=== PATIENT | male | born 1975 | race African-American/Black ===

== ENCOUNTER 2017-04-02 12:09 | Emergency (ER) | payer SELFPAY ==
[~2017-04-02] VITALS: Ht 177.8 cm; Wt 79.5 kg
[~2017-04-02 12:09] MED LIST: ERYTHROMYCIN O3.5 GM BOTH EYES; FLEXERIL10 MG PO; INDOCIN50 MG PO; KEFLEX500 MG PO; MOTRIN600 MG PO; NAPROSYN500 MG PO; NOHOMEMEDS; NORCO 5/3251 TABLET PO; PERCOCET 5/31 TABLET PO; ULTRAM50 MG PO
[2017-04-02] MEDS ORDERED: NAPROSYN500 MG PO (14:07)
[2017-04-02] MEDS ORDERED: LIDODERM 5% P1 PATCH TD (14:07)
[2017-04-02] MEDS ORDERED: FLEXERIL10 MG PO (14:07)
[2017-04-02] MEDS ORDERED: PREDNISONE20 MG PO (14:07)
[2017-04-02 14:20] VITALS: BP 169/105
== END 2017-04-02 14:25 | disposition home or self-care (01) ==
LOC: EME 12:09
DX: M54.41 Lumbago with sciatica, right side (principal)
CPT/HCPCS: 72131; 99281; 99284; J1885; J7512

== ENCOUNTER 2017-06-16 05:32 | Day surgery (SDC) | payer OTHER ==
[~2017-06-16] VITALS: Ht 177.8 cm; Wt 79.4 kg
[~2017-06-16 05:32] MED LIST changes: +HYDROCODON-ACE1 EAC8 PO; +LIDODERM 5% P1 PATCH TD; +PREDNISONE20 MG PO; +PROMETHAZINE HC25 M1 PO
[2017-06-16 06:03] VITALS: BP 138/66
[2017-06-16] MEDS ORDERED: ENDOCET 5-3251 EACH PO (09:14)
[2017-06-16] MEDS ORDERED: PROMETHAZINE HC25 M1 PO (09:14)
[2017-06-16 09:45] VITALS: BP 138/88
[2017-06-16 10:50] VITALS: BP 144/98
== END 2017-06-16 11:00 | disposition home or self-care (01) ==
LOC: SDC 05:32
PROC: 0SB40ZZ Excision of Lumbosacral Disc, Open Approach (ICD-10-PCS; principal; 2017-06-16)
DX: M51.17 Intervertebral disc disorders with radiculopathy, lumbosacral region (principal); F17.200 Nicotine dependence, unspecified, uncomplicated
CPT/HCPCS: 72020; 76000; J0131; J0330; J0690; J1100; J2250; J2405; J3010

== ENCOUNTER 2017-06-26 16:20 | Emergency (ER) | payer OTHER ==
[~2017-06-26] VITALS: Ht 177.8 cm; Wt 81.7 kg
[~2017-06-26 16:20] MED LIST changes: +ENDOCET 5-3251 EACH PO
[2017-06-26 16:43] VITALS: BP 164/104
[2017-06-27] MEDS ORDERED: MOTRIN600 MG PO (18:21)
[2017-06-27] MEDS ORDERED: ZOFRAN ODT4 MG PO (18:21)
== END 2017-06-26 19:31 | disposition left against medical advice (07) ==
LOC: EME 16:20
DX: R22.2 Localized swelling, mass and lump, trunk (principal); Z53.21 Procedure and treatment not carried out due to patient leaving prior to being seen by health care provider

== ENCOUNTER 2017-06-27 13:23 | Emergency (ER) | payer OTHER ==
[~2017-06-27] VITALS: Ht 177.8 cm; Wt 77.4 kg
[2017-06-27 14:38] LABS: EOSINOPHIL (%) 0.5 % (0-5); HEMATOCRIT 43.9 % (38.0-50.0); IMMATURE GRANULOCYTE (%) 0.3 % (0.0-0.7); INSTRUMENT ABS NEUTROPHIL CT 5.3 K/uL; LYMPHOCYTE COUNT 0.5 K/uL (1.0-2.8); MCH 32.4 PG (29.0-34.0); MEAN PLAT.VOLUME 9.2 uM^3 (9.0-12.4); MONOCYTE (%) 7.1 % (3-12); MONOCYTE COUNT 0.5 K/uL (0-0.8); NEUTROPHIL (%) 84.5 % (45-76); NEUTROPHIL COUNT 5.3 K/uL (1.8-6.4); PLATELET COUNT 405 K/uL (156-360); RBC DIS.WIDTH-SD 43.8 % (39-53); RED BLOOD COUNT 4.48 M/uL (4.00-5.50); WHITE BLOOD COUNT 6.3 K/uL (4.1-10.2)
[2017-06-27 14:50] LABS: CHLORIDE 109 mEq/L (99-109); POTASSIUM 4.7 mEq/L (3.7-5.4); SODIUM 139 mEq/L (136-147)
[2017-06-27 14:51] LABS: GLUCOSE 107 mg/dL (70-99)
[2017-06-27 14:53] LABS: ANION GAP 11 MEQ/L (2-14)
[2017-06-27 14:55] LABS: GFR ESTIMATE (CALCULATED) > 59 mL/min/ (58.99-99999)
[2017-06-27 14:56] LABS: UREA NITROGEN (BUN) 11 mg/dL (9-23)
[2017-06-27] MEDS ORDERED: MOTRIN600 MG PO (18:21)
[2017-06-27] MEDS ORDERED: ZOFRAN ODT4 MG PO (18:21)
[2017-06-27 19:05] VITALS: BP 138/95
== END 2017-06-27 19:10 | disposition home or self-care (01) ==
LOC: EME 13:23
DX: L76.34 Postprocedural seroma of skin and subcutaneous tissue following other procedure (principal); M54.9 Dorsalgia, unspecified; Z98.890 Other specified postprocedural states; R11.2 Nausea with vomiting, unspecified; R19.7 Diarrhea, unspecified; R51 Headache; R00.0 Tachycardia, unspecified; F17.200 Nicotine dependence, unspecified, uncomplicated
CPT/HCPCS: 80048; 81003; 83605; 85025; 99281; 99285; J2405; J7030